=== PATIENT | male | born 1995 | race Caucasian/White ===

== ENCOUNTER 2021-06-23 21:22 | Inpatient (IN) | payer MEDICARE, SELFPAY ==
[2021-06-23 22:13] VITALS: BP 124/84; PULSE 88; RESP 20; TEMP 36.6; O2SAT 98
[2021-06-23 22:21] VITALS: BMI 27.6
[2021-06-23] MEDS: hyDROXYzine 25 mg Capsule 50 MG PO (23:46)
[2021-06-23] MEDS: trazodone 50 mg Tablet PO (23:46)
[2021-06-23] MEDS: quetiapine 25 mg Tablet 50 MG PO (23:47)
--- NOTE | 2021-06-24 02:17 | PC.NURSE ---
Patient is anxious and unable to sleep in a new environment. He normally takes Seroquel at night. Seroquel 50mg, Trazadone 50mg and Vistaril 50mg all po given for symptoms, Meds were effective.
--- NOTE | 2021-06-24 02:51 | PC.ADMIT ---
Jeffery Dalton is a 26 y/o M with a PMhx of bipolar disorder, schizophrenia, and psychosis. He presented to the ED via EMS for psychiatric evaluation. The patient was found at the [facility] standing on the tables stating he was a werewolf/vampire and wanted to eat people. He denies SI/HI. Patient has been evaluated and admitted to [facility] several times in the past couple months. Admits to ETOH abuse, meth abuse, and psychosis.
[2021-06-24 06:00] VITALS: BP 124/84; PULSE 88; RESP 20; TEMP 36.6
[2021-06-24 06:52] VITALS: BP 108/62; PULSE 73; RESP 18; TEMP 36.8; O2SAT 100
--- NOTE | 2021-06-24 08:30 | W.PM.NPUH&PS ---
Providers/Chief Complaint Admitting Physician: Tejinder Infante MD Chief Complaint: SI HPI NPU History of Present Illness Jeffery Dalton is a 26 year old male Who was admitted from an outside hospital with the following report: Jeffery Do is a 26-year-old with a prior mental health history of bipolar disorder, schizophrenia, psychosis who presents to the emergency department via EMS for psychiatric evaluation. Patient is on the [employer] [facility] standing on tables saying he was a werewolf/vampire and wanted to eat people. He denies suicidal or homicidal ideation and is calm and cooperative at the time of arrival. Patient has been evaluated and admitted to this facility several times in the past couple of months admits to alcohol abuse and methamphetamine abuse and psychosis he denies any hallucinations during today's visit. Alcohol level was 235. Urine drug screen was negative Affidavit signed by the police: Called to the scene for mental health patient. When questioning the patient as to if he is suicidal/homicidal he would not answer directly but stated that he was fearful of himself. 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 He was admitted to the neuropsychiatry unit for definitive treatment of these issues. He says that he came to [place] to help out with a female. He helped her come down here from [place]. He says that he spent $3000 to bring her here and pay for hotel rooms. They had to have a hotel with a hot tub. He also gave her a lot of those. She did not appreciate any of that and they split up. She tried to control him and he was not going to have any of that. He says that in a fairly short time after they arrived to [facility] somehow he had himself forbidden from different properties. He had 4 different trespassing charges in a matter of days. He went to penitentiary for about 30 days for 1 of those trespassing charges. He still has some more work dates. He was just released from penitentiary 3 days ago. He says that they gave him Seroquel up to 200 mg in penitentiary but that was too much. He received Seroquel 50 mg, trazodone 50 mg and Vistaril 50 mg last night to help him sleep. He said that he slept very well and is still sedated this morning. He would like to try 100 mg tonight. He says that he has been diagnosed with bipolar 1. He has had clear manic episodes. He says that he has had other times when he has done strange things like he did yesterday. He does not remember standing on tables yesterday but does remember some strange things happening. He does not remember saying that he was a vampire. He does not feel that he has been manic lately. He has been drinking a fair amount since he got out of penitentiary 3 days ago. He denies any drug use. Meds NPU Home Medications Medication Instructions Recorded Confirmed Last Taken Type Seroquel 50 mg PO 0900,2100 06/23/21 06/23/21 Unknown History Vistaril 50 mg PO Q6H PRN 06/23/21 06/23/21 Unknown History trazodone 50 mg PO BEDTIME 06/23/21 06/23/21 Unknown History Allergies Allergy/AdvReac Type Severity Reaction Status Date / Time No Known Allergies Allergy Verified 06/23/21 23:30 Mental Status Exam MSE Comments: This is a 26-year-old mildly overweight black male who appears his stated age and is in no acute distress. He is pleasant and cooperative but somewhat difficult to interview. His grooming is fairly good. psychomotor activity is normal. Speech is at a regular rate and rhythm, normal volume, good articulation, not pressured. Alert, oriented X3 Attention and concentration appear to be good. Memory is intact Mood is good. Affect is euthymic. Thought process is logical and goal-directed. Thought content: Denies auditory and visual hallucinations. No delusions or paranoia are noted. No current suicidal ideation, and no homicidal ideation. Fund of knowledge is appears to be intact. Insight and judgment appear to be poor. Impulse control is poor. Vitals/I&O/Wt Last Vital Signs Temp 98.3 F 06/24/21 06:52 Pulse 73 06/24/21 06:52 Resp 18 06/24/21 06:52 BP 108/62 06/24/21 06:52 Pulse Ox 100 06/24/21 06:52 Weight last 48 hrs Weight 87.543 kg A&P Additional A&P Information This is a 26-year-old black male with a prior diagnosis of bipolar 1 disorder who was intoxicated yesterday and standing on tables at [facility] saying that he was a werewolf/vampire Plan: 1. We will observe just on Seroquel for sleep for now. 2. Continue every 15 minute checks for safety. 3. Encourage individual, group and milieu therapies. 4. Encourage sober living treatment after discharge at the highest level of care to which he is willing to commit. 5. We will monitor for safety for himself in the community prior to discharge. Involuntary Hold Information 96 Hour Hold: 96 Hour Involuntary Admission: Yes Attestations NPU Medical Necessity Statement*: Inpatient hospitalization is medically necessary and the clinically appropriate intervention at this time. We will initiate medications and make changes as indicated. He will be in the hospital for over 2 midnights. Likely length of stay 4-6 days Coding Level of Care Code Acute Produce Clerk for Hipolito Alston
[2021-06-24] MEDS: quetiapine 25 mg Tablet 50 MG PO ×2 (09:59→20:22)
[2021-06-24] MEDS: folic acid 1 mg Tablet PO (10:01)
[2021-06-24] MEDS: multivitamin therapeutic Tablet 1 TAB PO (10:02)
[2021-06-24] MEDS: thiamine 100 mg Tablet PO (10:02)
[2021-06-24 14:00] VITALS: BP 115/70; PULSE 75; RESP 16; TEMP 36.6; O2SAT 100
[2021-06-24] MEDS: hyDROXYzine 25 mg Capsule 50 MG PO (15:35)
[2021-06-24] MEDS: quetiapine 100 mg Tablet PO (20:21)
[2021-06-24 20:33] VITALS: BP 117/77; PULSE 83; RESP 16; O2SAT 100
[2021-06-24] MEDS: trazodone 50 mg Tablet PO (21:29)
[2021-06-25 06:00] VITALS: BP 117/77; PULSE 57; RESP 20; TEMP 36.6; O2SAT 94
[2021-06-25] MEDS: multivitamin therapeutic Tablet 1 TAB PO (09:01)
[2021-06-25] MEDS: quetiapine 25 mg Tablet 50 MG PO (09:01)
[2021-06-25] MEDS: folic acid 1 mg Tablet PO (09:01)
[2021-06-25] MEDS: thiamine 100 mg Tablet PO (09:01)
--- NOTE | 2021-06-25 09:56 | P.NPUPN_ITS ---
Subjective NPU Subjective: Interval history: He says that the whole episode was put on by him in order to get into the hospital because he did not have a place to stay and was cold. He said that he has been admitted twice since he has been in [place] for the same reason. He said that now he has finally gotten his debit card so that it is sent to [facility] in [place] and now he will have money. He says that he takes the Seroquel 50 mg in the morning and 150 mg at bedtime on a regular basis. He says that it is good for him to and helps regulate his sleep. He says that he has disability for bipolar disorder and gets a monthly check. His initial intention was to go to [place] but this female diverted him. He plans to go to [place] as soon as he can. He said that it has been sometime since he had a real manic episode. Mental Status Exam MSE Comments: This is a 26-year-old mildly overweight black male who appears his stated age and is in no acute distress. He is pleasant and cooperative.. His grooming is fairly good. psychomotor activity is normal. Speech is at a regular rate and rhythm, normal volume, good articulation, not pressured. Alert, oriented X3 Attention and concentration appear to be good. Memory is intact Mood is good. Affect is euthymic. Thought process is logical and goal-directed. Thought content: Denies auditory and visual hallucinations. No delusions or paranoia are noted. No current suicidal ideation, and no homicidal ideation. Fund of knowledge is appears to be intact. Insight and judgment appear to be poor. Impulse control is poor. Cognition: Patient Appearance: Appropriate Ability to Follow Directions: Good Patient Orientation (long list): Person, Place, Name and Age Comprehension Ability: No Impairment Hallucination Type: None Delusion Description: Grandiose Thought Process: Circumstantial and Flight of Ideas Affect: Affect Description: Calm Behavior: Patient Behavior: Cooperative Speech Pattern: Appropriate and Clear Vitals/I&O/Wt Last Vital Signs Temp 97.9 F 06/25/21 06:00 Pulse 57 L 06/25/21 06:00 Resp 20 H 06/25/21 06:00 BP 117/77 06/25/21 06:00 Pulse Ox 94 06/25/21 06:00 Weight last 48 hrs Weight 87.543 kg A&P Additional A&P Information This is a 26-year-old black male with a prior diagnosis of bipolar 1 disorder who was intoxicated yesterday and standing on tables at [facility] saying that he was a werewolf/vampire Plan: 1. We will continue him on his routine medications of Seroquel 50 mg in the morning and 150 mg at bedtime. 2. Continue every 15 minute checks for safety. 3. Encourage individual, group and milieu therapies. 4. Encourage sober living treatment after discharge at the highest level of care to which he is willing to commit. 5. We will monitor for safety for himself in the community prior to discharge. Involuntary Hold Information 96 Hour Hold: 96 Hour Involuntary Admission: Yes Attestations NPU Medical Necessity Statement*: Inpatient hospitalization is medically necessary and the clinically appropriate intervention at this time. We will initiate medications and make changes as indicated. Coding Level of Care Code Acute Personal Banking Officer for Hipolito Alston
[2021-06-25 14:00] VITALS: BP 121/77; PULSE 85; RESP 17; O2SAT 99
[2021-06-25] MEDS: nicotine 2 mg Gum BUCCAL (18:55)
[2021-06-25] MEDS: quetiapine 100 mg Tablet PO (20:03)
[2021-06-25] MEDS: trazodone 50 mg Tablet PO (20:03)
[2021-06-25 20:18] VITALS: BP 100/67; PULSE 89; RESP 17; O2SAT 99
[2021-06-26] MEDS: quetiapine 25 mg Tablet 50 MG PO ×2 (04:32→09:39)
[2021-06-26 05:47] VITALS: BP 100/67; PULSE 89; RESP 17; TEMP 36.6; O2SAT 99; BMI 27.6
[2021-06-26 07:05] VITALS: BP 123/86; PULSE 54; RESP 18; TEMP 36.6; O2SAT 98
--- NOTE | 2021-06-26 07:21 | W.PM.NPUDCS ---
Reason for Visit Reason for Visit: SI Brief History: History of Present Illness Jeffery Dalton is a 26 year old male Who was admitted from an outside hospital with the following report: Jeffery Do is a 26-year-old with a prior mental health history of bipolar disorder, schizophrenia, psychosis who presents to the emergency department via EMS for psychiatric evaluation. Patient is on the [place] [facility] standing on tables saying he was a werewolf/vampire and wanted to eat people. He denies suicidal or homicidal ideation and is calm and cooperative at the time of arrival. Patient has been evaluated and admitted to this facility several times in the past couple of months admits to alcohol abuse and methamphetamine abuse and psychosis he denies any hallucinations during today's visit. Alcohol level was 235. Urine drug screen was negative Affidavit signed by the police: Called to the scene for mental health patient. When questioning the patient as to if he is suicidal/homicidal he would not answer directly but stated that he was fearful of himself. 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 He was admitted to the neuropsychiatry unit for definitive treatment of these issues. He says that he came to [place] to help out with a female. He helped her come down here from [place]. He says that he spent $3000 to bring her here and pay for hotel rooms. They had to have a hotel with a hot tub. He also gave her a lot of those. She did not appreciate any of that and they split up. She tried to control him and he was not going to have any of that. He says that in a fairly short time after they arrived to [place] somehow he had himself forbidden from different properties. He had 4 different trespassing charges in a matter of days. He went to care home for about 30 days for 1 of those trespassing charges. He still has some more work dates. He was just released from care home 3 days ago. He says that they gave him Seroquel up to 200 mg in care home but that was too much. He received Seroquel 50 mg, trazodone 50 mg and Vistaril 50 mg last night to help him sleep. He said that he slept very well and is still sedated this morning. He would like to try 100 mg tonight. He says that he has been diagnosed with bipolar 1. He has had clear manic episodes. He says that he has had other times when he has done strange things like he did yesterday. He does not remember standing on tables yesterday but does remember some strange things happening. He does not remember saying that he was a vampire. He does not feel that he has been manic lately. He has been drinking a fair amount since he got out of care home 3 days ago. He denies any drug use. Hospital Course Hospital Course He slowly acclimated to the individual, group and milieu therapies provided. He his Seroquel 50 mg in the morning and 50 mg at bedtime. He said that he had been compliant with these medications. he tolerated these doses and showed steady improvement during his stay. He was able to contract for safety outside hospital prior to discharge. During the hospitalization, patient had routine laboratory studies which were within normal limits except for few outliers. Additionally there was a general medical evaluation which was also within normal limits and revealed no new acute processes. Discharge Summary: At the time of discharge, lethality was denied and psychosis was resolving. He said that the psychosis was all put on in order to get in the hospital because he had nowhere else to go. Mood and anxiety were well managed. Patient endorsed a plan to follow-up with the aftercare recommendations of the treatment team. Patient was evaluated and deemed to be absent credible lethality, and had achieved the maximum benefit from an inpatient hospitalization, so was discharged. Involuntary Hold Information 96 Hour Hold: 96 Hour Involuntary Admission: Yes Mental Status Exam MSE Comments: This is a 26-year-old mildly overweight black male who appears his stated age and is in no acute distress. He is pleasant and cooperative.. His grooming is fairly good. psychomotor activity is normal. Speech is at a regular rate and rhythm, normal volume, good articulation, not pressured. Alert, oriented X3 Attention and concentration appear to be good. Memory is intact Mood is good. Affect is euthymic. Thought process is logical and goal-directed. Thought content: Denies auditory and visual hallucinations. No delusions or paranoia are noted. No current suicidal ideation, and no homicidal ideation. Fund of knowledge is appears to be intact. Insight and judgment appear to be poor. Impulse control is poor. Cognition: Patient Appearance: Appropriate Ability to Follow Directions: Good Patient Orientation (long list): Person, Place, Name and Age Comprehension Ability: No Impairment Hallucination Type: None Delusion Description: Grandiose Thought Process: Appropriate Affect: Affect Description: Appropriate and Calm Behavior: Patient Behavior: Appropriate and Cooperative Speech Pattern: Appropriate and Clear Discharge Data Vitals: Last Vital Signs Temp 98 F 06/26/21 07:05 Pulse 54 L 06/26/21 07:05 Resp 18 06/26/21 07:05 BP 123/86 06/26/21 07:05 Pulse Ox 98 06/26/21 07:05 Discharge Plan Discharge Patient Disposition: Home Condition: Stable Prescriptions: New quetiapine 100 mg Tablet 100 mg PO BEDTIME 30 Days Qty: 30 RF: 0 quetiapine 25 mg Tablet 50 mg PO 0900,2100 30 Days Qty: 120 RF: 0 trazodone 50 mg Tablet 50 mg PO BEDTIME 30 Days Qty: 30 RF: 0 hydroxyzine pamoate 25 mg Capsule 50 mg PO Q6H PRN (Reason: Anxiety) 30 Days Qty: 30 RF: 0 Discontinued Seroquel tablet 50 mg PO 0900,2099 RF: 0 Vistaril capsule 50 mg PO Q6H PRN (Reason: Anxiety) RF: 0 trazodone tablet 50 mg PO BEDTIME RF: 0 Discharge Orders: Discharge Order (Routine); Ordered 06/26/21 Ordered By: Tejinder Infante Discharge Diet: Regular Discharge Activity: Resume usual activity Patient Instructions: Opioid Safety Discharge Attestations NPU Time Spent in Discharge Care*: less than 30 min Specific Discharge Activities: Specific discharge activities: educating patient, discussing with case management associate/social workers/dc planners, documenting/other paperwork and evaluating patient/reviewing data Coding Level of Care Code Acute Ch FW DC note
[2021-06-26] MEDS: multivitamin therapeutic Tablet 1 TAB PO (08:22)
[2021-06-26] MEDS: thiamine 100 mg Tablet PO (08:22)
[2021-06-26] MEDS: folic acid 1 mg Tablet PO (08:22)
[2021-06-26 09:50] VITALS: BP 123/86; PULSE 54; RESP 18; TEMP 36.6; O2SAT 98
--- NOTE | 2021-06-26 10:19 | PC.NURSE ---
PATIENT ADMITTED THAT HE REALLY DOESNT HAVE A RIDE, THAT HES JUST GONNA WALK TO THE HOMELESS RESIDENTIAL AND THEN GO TO [place] FROM THERE. PATIENT ISNT FROM THIS AREA. RELAYED ALL THIS INFORMATION TO THE PHYSICIAN WHO CAME AND SPOKE WITH THE PATIENT. TO PROCEED WITH DISCHARGE PER PHYSICIAN
== END 2021-06-26 10:20 | disposition home or self-care (01) | DRG 885 ==
PROVIDERS: Admitting Provider Psychiatry & Neurology Psychiatry; Visit Provider Psychiatry & Neurology Psychiatry
DX: F25.0 Schizoaffective disorder, bipolar type (principal); F10.10 Alcohol abuse, uncomplicated; F15.10 Other stimulant abuse, uncomplicated
CPT/HCPCS: 97150; 97165

== ENCOUNTER 2021-06-27 07:38 | Emergency (ER) | payer MEDICARE, SELFPAY ==
[2021-06-27 08:00] VITALS: BP 134/91; PULSE 87; RESP 16; TEMP 36.9; O2SAT 98
--- NOTE | 2021-06-27 08:05 | ED.C_ITS ---
HPI - Psych General: Chief Complaint: Psychiatric Symptoms Stated Complaint: SI Time Seen by Provider: 06/27/21 07:40 History of Present Illness: HPI Narrative: 26-year-old male arrives by EMS with complaint of suicidal ideation. Patient was discharged from [facility] by Dr. Puente yesterday. He had been seen in [place] was transferred here was here for a few days and then discharged according to Dr. Puente's notes patient admitted he was just seeking a place decide when he was admitted. On arrival here he states he suicidal my try to discuss with him further he gives nonsensical answers and essentially declines to discuss it any more significantly. Reviewed the previous hospitalization notes noted the circumstances of previous admission. Patient maintains suicidal ideation when discussing with me. MD complaint: suicidal ideation Onset (ago): day(s) Relieving factors: none Exacerbating factors: none Associated symptoms: Reports suicidal ideation; Deny auditory hallucinations, visual hallucinations, delusions, depression, homicidal ideation or racing thoughts Treatments prior to arrival: none Review of Systems Const: Denies: fever(s), chills, body aches, change in appetite, fatigue or malaise ENMT: Denies: throat pain, ear or mastoid pain, nasal discharge or nasal congestion Card: Denies: chest pain, edema, dyspnea on exertion or orthopnea Resp: Denies: dyspnea, productive cough or non-productive cough GI: Denies: abdominal pain, nausea, vomiting, hematemesis, coffee ground emesis, diarrhea, constipation, bloating, hematochezia or melena : Denies: flank pain, dysuria, urinary frequency or urinary urgency Skin/Breast: Denies: rash or pruritus Psych: Reports: suicidal ideation; Denies: depression, visual hallucinations, auditory hallucinations or homicidal ideation Physical Exam Const: COMMON NORMALS: no acute distress GENERAL APPEARANCE: cooperative and comfortable ORIENTATION/CONSCIOUSNESS: Yes awake, Yes oriented to person, Yes oriented to place and Yes oriented to time HENMT: COMMON NORMALS: normocephalic, atraumatic and hearing grossly normal bilaterally HEAD & SCALP: normocephalic and atraumatic Resp: COMMON NORMALS: normal respiratory effort, No retractions, No use of accessory muscles and clear to auscultation bilaterally AUSCULTATION: clear to auscultation bilaterally Cardio: COMMON NORMALS: regular rate, regular rhythm and No murmurs present (Cardio) RATE: regular rate RHYTHM: regular rhythm Extremity: COMMON NORMALS: normal to inspection, capillary refill normal, no clubbing, cyanosis or edema, no calf tenderness and no pedal edema Neuro: SENSORIUM/ORIENTATION: Yes oriented to person, Yes oriented to place and Yes oriented to time Psych: THOUGHT CONTENT: No delusions MDM - Psych MDM Narrative: Medical decision making narrative: Early consultation with psychiatry given the recent discharge and circumstances. Dr. Puente has been down and seen the patient in the emergency room. Patient denied any suicidal ideation when talking to Dr. Puente's please see Dr. Infante's note Dr. Puente documents discharge he does not feel that hospitalization would benefit the patient. Lab Data: Labs: Lab Results 06/27/21 08:18 WBC 7.5 10^3/uL 10^3/ uL (4.0-10.0) RBC 5.27 10^6/uL 10^6 /uL (4.1-5.3) Hgb 16.5 g/dL g/dL (11.7-16.6) Hct 47.8 % % (42.0-52.0) MCV 90.7 fl fl (80-94) MCH 31.3 pg pg (28.0-34.0) MCHC 34.5 g/dL g/dL (30.0-36.0) RDW 12.2 % % (12.1-15.1) Plt Count 243 10^3/cmm 10^3 /cmm (130-400) MPV 9.6 fL fL (7.4-10.4) Neut % (Auto) 63.3 % % Lymph % (Auto) 28.2 % % [place] % (Auto) 6.5 % % Eos % (Auto) 1.3 % % Baso % (Auto) 0.4 % % Neut # (Auto) 4.74 10^3/uL 10^3 /uL (1.8-7.7) Lymph # (Auto) 2.1 10^3/uL 10^3/ uL (0.8-4.8) [place] # (Auto) 0.5 10^3/uL 10^3/ uL (0.2-0.9) Eos # (Auto) 0.1 10^3/uL 10^3/ uL (0.0-0.8) Baso # (Auto) 0.0 10^3/uL 10^3/ uL (0.0-0.1) Nucleated RBC % (a uto) 0 % % Nucleated RBCs # 0.0 /100WBC /100W BC Discharge Plan Discharge Patient Disposition: Home Clinical Impression: 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
[2021-06-27 08:24] VITALS: BMI 26.7
--- NOTE | 2021-06-27 08:25 | P.NPUCON_ITS ---
Providers/Reason for Consult Consulting Physican/Specialty*: Tejinder Infante MD/Psychiatist Reason for Consult*: Saying he has suicidal Psych Consult HPI History of Present Illness Jeffery Dalton is a 26 year old male who presents to the emergency room saying that he is suicidal. He left our unit yesterday planning to go to a homeless detention. He says that did not work out. He came to the hospital today hoping that we would somehow get him to [place] where he hopes to get his debit card work and eventually get to [place]. He said that it was our fault that he was here. He then said it was the other hospitals well. He feigning psychosis about 3 days ago because he had no place to go and the hospital and I will send him here. He admitted to us that he was faking the psychosis in order to get into the hospital. He admitted to me today that he is not suicidal but needs help to get back to [place]. He said that he was ready to leave and was not suicidal. Mental Status Exam MSE Comments: This is a 26-year-old appropriate weight male who is approximately his stated age and is in no acute distress. psychomotor activity is normal. Speech is at a regular rate and rhythm, normal volume, good articulation, not pressured. Alert, oriented X3 Attention and concentration is normal. Memory is intact Mood is frustrated at his situation. Affect is mildly dysphoric. Thought process is logical and goal-directed. Thought content: Denies auditory and visual hallucinations. No delusions or paranoia are noted. No current suicidal ideation, and no homicidal ideation. Fund of knowledge is average. Insight and judgment appear to be poor. Impulse control is poor. 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 He admitted that he was not psychotic but just needed a place to stay. He came today saying that he was suicidal but admits that he is not and again just looking for some assistance getting back to [place]. He clearly does not need admission to the hospital. Involuntary Hold Information 96 Hour Hold: 96 Hour Involuntary Admission: Yes Attestations NPU Medical Necessity Statement*: Does not need to be in the hospital. 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
[2021-06-27 08:30] LABS: Basophils % 0.4 %; Eosinophils # 0.1 10^3/uL (0.0-0.8); Eosinophils % 1.3 %; Hematocrit 47.8 % (42.0-52.0); Hemoglobin 16.5 g/dL (11.7-16.6); Lymphocytes # 2.1 10^3/uL (0.8-4.8); Lymphocytes % 28.2 %; Mean Corpuscular HGB Conc 34.5 g/dL (30.0-36.0); Mean Corpuscular Hemoglobin 31.3 pg (28.0-34.0); Mean Corpuscular Volume 90.7 fl (80-94); Mean Platelet Volume 9.6 fL (7.4-10.4); Monocytes # 0.5 10^3/uL (0.2-0.9); Monocytes % 6.5 %; Neutrophils # 4.74 10^3/uL (1.8-7.7); Neutrophils % 63.3 %; Nucleated Red Blood Cells % 0 %; Platelet Count 243 10^3/cmm (130-400); Red Blood Count 5.27 10^6/uL (4.1-5.3); Red Cell Distribution Width 12.2 % (12.1-15.1); White Blood Count 7.5 10^3/uL (4.0-10.0)
[2021-06-27 08:50] LABS: Alanine Aminotransferase 18 U/L (0-41); Albumin Level 4.7 g/dL (3.5-5.2); Alkaline Phosphatase 60 IU/L (40-130); Aspartate Amino Transferase 27 U/L (0-40); Blood Urea Nitrogen 8 mg/dL (6-20); Calcium 9.6 mg/dL (8.5-10.5); Carbon Dioxide 26 mmol/L (22-29); Chloride 101 mmol/L (98-107); Globulin 3.1 g/dL (1.3-4.6); Glomerular Filtration Rate 116.9 mL/min (90-130); Glucose 77 mg/dL (65-115); Osmolality Calculated 291 mOsm/kg (285-295); Sodium 142 mmol/L (136-145); Total Bilirubin 0.2 mg/dL (0.15-1.2); Total Protein 7.8 g/dL (6.6-8.7)
[2021-06-27 08:58] VITALS: BP 137/90; PULSE 85; RESP 14; O2SAT 100
--- NOTE | 2021-06-27 09:08 | PC.NURSE ---
DISCHARGE INSTRUCTIONS REVIEWED WITH PATIENT- PATIENT STATES WE SHOULD JUST THROW THEM AWAY, STATES 'THE TRUTH IS FUCKING CRAZY' PATIENT AMBULATED TO THE DOOR WITH STAFF
== END 2021-06-27 09:17 | disposition home or self-care (01) ==
PROVIDERS: Emergency Provider Family Medicine
DX: F60.2 Antisocial personality disorder (principal)
CPT/HCPCS: 80053; 85025; 99283